=== PATIENT | female | born 1985 | race Caucasian/White ===

== ENCOUNTER → 2017-08-23 | Emergency (ER) | payer OTHER ==
[~2017-08-23] VITALS: Ht 165.1 cm; Wt 57.2 kg
[~2017-08-23] MED LIST: PRILOSEC10 MG; SYNTHROID75 MCG
== END | disposition home or self-care (01) ==
LOC: ER 21:32
DX: A64 Unspecified sexually transmitted disease (principal); Z20.828 Contact with and (suspected) exposure to other viral communicable diseases

== ENCOUNTER 2025-02-07 13:54 | Outpatient (CLI) | payer OTHER | END 2025-02-07 14:00 | disposition home or self-care (01) | LOC: LAB 13:54 | PROVIDERS: ATTEND Obstetrics & Gynecology Maternal & Fetal Medicine | DX: Z00.00 Encounter for general adult medical examination without abnormal findings (principal) ==

== ENCOUNTER → 2025-02-07 | Outpatient (CLI) | payer OTHER | END | disposition home or self-care (01) | LOC: PRENATAL 12:44 | PROVIDERS: ATTEND Obstetrics & Gynecology Maternal & Fetal Medicine | DX: O26.849 Uterine size-date discrepancy, unspecified trimester (principal); O09.519 Supervision of elderly primigravida, unspecified trimester; O28.3 Abnormal ultrasonic finding on antenatal screening of mother; Z3A.15 15 weeks gestation of pregnancy ==

== ENCOUNTER → 2025-03-03 07:05 | Outpatient (CLI) | payer OTHER | END | disposition home or self-care (01) | LOC: PRENATAL 07:05 | PROVIDERS: ATTEND Obstetrics & Gynecology Maternal & Fetal Medicine | DX: O44.00 Complete placenta previa NOS or without hemorrhage, unspecified trimester (principal); O09.519 Supervision of elderly primigravida, unspecified trimester; O28.3 Abnormal ultrasonic finding on antenatal screening of mother; Z3A.17 17 weeks gestation of pregnancy ==